=== PATIENT | female | born 1960 | race Caucasian/White ===

== ENCOUNTER 2016-06-15 20:52 | Emergency (ER) | payer OTHER ==
[~2016-06-15] VITALS: Ht 165.1 cm; Wt 75.0 kg
[~2016-06-15 20:52] MED LIST: ANTIDEPRESSANT; LORT5TAB PO; SYNT25TA PO
[2016-06-15 20:59] VITALS: BP 184/97; PULSE 161; RESP 16; TEMP 98.3; O2SAT 95
[2016-06-15] MEDS ORDERED: BUDESONIDE PO (21:04)
[2016-06-15] MEDS ORDERED: SYNT25TA PO (21:04)
[2016-06-15 21:05] VITALS: BP 128/95; PULSE 128; RESP 26; O2SAT 94
--- NOTE | 2016-06-15 21:15 | PD ---
HPI Chief Complaint: Psychiatric Symptoms Time Seen by Provider: 21:14 Travel History International Travel<30 days: No Contact w/Intl Traveler<30days: No Traveled to known affect area: No History of Present Illness HPI 56-year-old female with history of depression, anxiety, and hypothyroidism, presents to the emergency department [facility] under [place] act for psychiatric evaluation. Patient is very tearful, upset. She states that her of 30 years has left her. She has self-inflicted bruises to her face. Patient states she no longer wants to live. She is requesting that we "put her to sleep forever." She repetitively states she is "worthless" and a "piece of shit." Denies alcohol consumption and illicit drug use. Denies any acute medical needs. No other symptoms to report at this time. PFSH Past Medical History Anxiety: Yes Depression: Yes Gastrointestinal Disorders: Yes (microscopic colitis, cilica) Thyroid Disease: Yes Tetanus Vaccination: > 5 Years Influenza Vaccination: No : 4 Para: 4 Tubal Ligation: Yes Past Surgical History Appendectomy: Yes Hysterectomy: Yes Social History Alcohol Use: No Tobacco Use: No Substance Use: No Allergies-Medications (Allergen,Severity, Reaction): Coded Allergies: No Known Allergies (Verified , 06/15/16) Reported Meds & Prescriptions Reported Meds & Active Scripts Active Reported Hydrocodone-Acetaminophen 10-325 mg Tab 1 Tab PO Q6H PRN [budesnoide] 3 Mg PO DAILY Synthroid (Levothyroxine Sodium) 25 Mcg Tab Unknown Dose PO DAILY Review of Systems ROS Limitations: Uncooperative, Combative Except as stated in HPI: all other systems reviewed are Neg Physical Exam Exam Limitations: Uncooperative, Combative Narrative GENERAL: Well-nourished, female patient, tearful, verbally aggressive, with labile moods, in no acute distress SKIN: Focused skin assessment warm/dry. HEAD: Periorbital ecchymosis Normocephalic. EYES: Pupils equal and round. No scleral icterus. No injection or drainage. EOMI. ENT: No nasal bleeding or discharge. Mucous membranes pink and moist. NECK: Trachea midline. No JVD. CARDIOVASCULAR: Tachycardic rate and rhythm. No murmur appreciated. RESPIRATORY: No accessory muscle use. Clear to auscultation. Breath sounds equal bilaterally. GASTROINTESTINAL: Abdomen soft, non-tender, nondistended. Hepatic and splenic margins not palpable. MUSCULOSKELETAL: No obvious deformities. No clubbing. No cyanosis. No edema. NEUROLOGICAL: Awake and alert. No obvious cranial nerve deficits. Motor grossly within normal limits. Normal speech. Data Data Last Documented VS Vital Signs Date Time Temp Pulse Resp B/P Pulse Ox O2 Delivery O2 Flow Rate FiO2 06/15/16 21:05 128 26 128/95 94 Room Air 06/15/16 20:59 98.3 Orders Complete Blood Count With Diff (06/15/16 21:00) Basic Metabolic Panel (Bmp) (06/15/16 21:00) Urinalysis - C+S If Indicated (06/15/16 21:00) Psych Screen (06/15/16 21:00) Drug Screen, Random Urine (06/15/16 21:00) Alcohol (Ethanol) (06/15/16 21:00) Tylenol (Acetaminophen) (06/15/16 21:25) Salicylates (Aspirin) (06/15/16 21:25) Ibuprofen (Motrin) (06/15/16 21:45) Olanzapine Inj (Zyprexa Inj) (06/15/16 21:45) Restraints Violent (06/15/16 21:37) Ct Brain W/O Iv Contrast(Rout) (06/15/16 ) Labs Laboratory Tests Test 06/15/16 06/15/16 21:20 21:30 White Blood Count 9.2 TH/MM3 Red Blood Count 4.59 MIL/MM3 Hemoglobin 14.0 GM/DL Hematocrit 41.4 % Mean Corpuscular Volume 90.1 FL Mean Corpuscular Hemoglobin 30.4 PG Mean Corpuscular Hemoglobin 33.8 % Concent Red Cell Distribution Width 15.2 % Platelet Count 352 TH/MM3 Mean Platelet Volume 8.2 FL Neutrophils (%) (Auto) 58.7 % Lymphocytes (%) (Auto) 34.4 % Monocytes (%) (Auto) 5.6 % Eosinophils (%) (Auto) 0.7 % Basophils (%) (Auto) 0.6 % Neutrophils # (Auto) 5.4 TH/MM3 Lymphocytes # (Auto) 3.2 TH/MM3 Monocytes # (Auto) 0.5 TH/MM3 Eosinophils # (Auto) 0.1 TH/MM3 Basophils # (Auto) 0.1 TH/MM3 CBC Comment DIFF FINAL Differential Comment Urine Color COLORLESS Urine Turbidity CLEAR Urine pH 5.5 Urine Specific [place] 1.005 Urine Protein NEG mg/dL Urine Glucose (UA) NEG mg/dL Urine Ketones NEG mg/dL Urine Occult Blood NEG Urine Nitrite NEG Urine Bilirubin NEG Urine Urobilinogen LESS THAN 2.0 MG/DL Urine Leukocyte Esterase NEG Urine RBC LESS THAN 1 /hpf Urine WBC LESS THAN 1 /hpf Microscopic Urinalysis Comment CULT NOT INDICATED Sodium Level 141 MEQ/L Potassium Level 3.8 MEQ/L Chloride Level 108 MEQ/L Carbon Dioxide Level 21.8 MEQ/L Anion Gap 11 MEQ/L Blood Urea Nitrogen 17 MG/DL Creatinine 0.85 MG/DL Estimat Glomerular Filtration 69 ML/MIN Rate Random Glucose 117 MG/DL Calcium Level 9.8 MG/DL Urine Opiates Screen NEG Urine Barbiturates Screen POS Urine Amphetamines Screen NEG Urine Benzodiazepines Screen NEG Urine Cocaine Screen NEG Urine Cannabinoids Screen POS Ethyl Alcohol Level 106 MG/DL Salicylates Level LESS THAN 1.7 MG/DL Acetaminophen Level 11.9 MCG/ML MDM Medical Decision Making Medical Screen Exam Complete: Yes Emergency Medical Condition: Yes Medical Record Reviewed: Yes Differential Diagnosis Mood disorder versus personality disorder versus adjustment reaction disorder versus acute psychosis versus intoxication versus polysubstance Narrative Course 56 year old female presents to the ED for evaluation under a [place] act. Patient is tearful, combative, uncooperative. She is aggressive towards staff. Patient has self-inflicted bruises to her face from striking herself with her own hands and against objects. Patient is medicated here in the emergency department. CT imaging of the brain is complete and negative for acute intracranial abnormality.. Patient was placed in restraints to protect herself and to protect staff. She was explained removal criteria. [id number] examination was done at 2145. Patient is eminent risk to harming herself and staff. Extremities are neurovascularly intact. CBC and BMP are without acute concern. Urinalysis is unremarkable. Toxicology is positive for barbiturates and cannabinoids. EtOH is 106. Salicylates was less than 1.7. Acetaminophen is 1.9. Patient does report taking Lortab 10 for pain. She takes 3 at a time per her report. Repeats Tylenol will be drawn in 3 hours. Abrasion is medically cleared and undergo psychiatric screening for further evaluation and disposition. Diagnosis Primary Impression: Adjustment disorder with mixed anxiety and depressed mood Additional Impression: Suicidal thoughts Condition: Stable Kaitlynn White Jun 15, 2016 21:14
[2016-06-15] MEDS ORDERED: HYDR-3583 PO (21:18)
[2016-06-15 21:36] LABS: BLOOD, URINE NEG (NEG); GLUCOSE,URINE NEG (NEG); KETONE, URINE NEG (NEG); NITRITE,URINE NEG (NEG); PH, URINE 5.5 (5.0-8.5); URINE COLOR COLORLESS (YELLW/STRAW)
[2016-06-15 21:40] LABS: AMPHETAMINE, URINE NEG (NEG); BARBITURATES, URINE POS (NEG); COCAINE, URINE NEG (NEG)
[2016-06-15 21:45] LABS: COMMENT (UR) CULT NOT INDICATED; CULTURE IF INDICATED CULT NOT INDICATED
[2016-06-15] MEDS ORDERED: IBUPROFEN 800 MG TAB PO ONE (21:45)
[2016-06-15] MEDS ORDERED: OLANZapine IM 10 MG VIAL IM ONE (21:45)
[2016-06-15 21:47] LABS: BICARBONATE 21.8 MEQ/L (21.0-32.0)
[2016-06-15 21:48] LABS: POTASSIUM 3.8 MEQ/L (3.5-5.1)
[2016-06-15 21:52] LABS: AUTOMATED NEUTROPHIL # 5.4 TH/MM3 (1.8-7.7); BASOPHIL # 0.1 TH/MM3 (0-0.2); BASOPHIL % 0.6 % (0.0-2.0); EOSINOPHIL # 0.1 TH/MM3 (0-0.4); EOSINOPHIL % 0.7 % (0.0-4.0); HEMATOCRIT 41.4 % (35.0-46.0); HEMO FLAGS DIFF FINAL; LYMPH % 34.4 % (9.0-44.0); LYMPHOCYTE # 3.2 TH/MM3 (1.0-4.8); MEAN CELL VOLUME 90.1 FL (80.0-100.0); MEAN CORPUSCULAR HEMOGLOBIN 30.4 PG (27.0-34.0); MEAN CORPUSCULAR HGB CONC 33.8 % (32.0-36.0); MONO % 5.6 % (0.0-8.0); NEUT % 58.7 % (16.0-70.0); PLATELET COUNT 352 TH/MM3 (150-450); RED BLOOD COUNT 4.59 MIL/MM3 (4.00-5.30); RED CELL DISTRIBUTION WIDTH 15.2 % (11.6-17.2); WHITE BLOOD COUNT 9.2 TH/MM3 (4.0-11.0)
--- NOTE | 2016-06-15 22:10 | RADRPT ---
EXAM DATE/TIME: 06/15/2016 21:57 [facility] COMPARISON: No previous studies available for comparison. INDICATIONS : Cephalgia; fall. RADIATION DOSE: 56.35 CTDIvol (mGy) MEDICAL HISTORY : None SURGICAL HISTORY : None. ENCOUNTER: Initial ACUITY: 1 day PAIN SCALE: 5/10 LOCATION: cranial TECHNIQUE: Multiple contiguous axial images were obtained of the head. Using automated exposure control and adj ustment of the mA and/or kV according to patient size, radiation dose was kept as low as reasonably a chievable to obtain optimal diagnostic quality images. FINDINGS: CEREBRUM: The ventricles are normal for age. No evidence of midline shift, mass lesion, hemorrhage or acute in farction. No extra-axial fluid collections are seen. POSTERIOR FOSSA: The cerebellum and brainstem are intact. The 4th ventricle is midline. The cerebellopontine angle i s unremarkable. EXTRACRANIAL: The visualized portion of the orbits is intact. SKULL: The calvaria is intact. No evidence of skull fracture. CONCLUSION: No acute disease. Stephan Salmon MD on June 15, 2016 at 22:08 Board Certified Radiologist. This report was verified electronically.
[2016-06-16 01:17] VITALS: BP 109/63; PULSE 79; RESP 16; O2SAT 98
[2016-06-16 05:39] VITALS: BP 101/69; PULSE 77; RESP 14; O2SAT 95
[2016-06-16 09:30] VITALS: BP 146/86; PULSE 70; RESP 14; O2SAT 96
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
[2016-06-17] MEDS ORDERED: BUDE3CAP PO (12:35)
== END 2016-06-16 10:16 | disposition home or self-care (01) ==
LOC: NEPE 20:52
DX: F43.23 Adjustment disorder with mixed anxiety and depressed mood (principal); R45.851 Suicidal ideations; E07.9 Disorder of thyroid, unspecified; Z86.59 Personal history of other mental and behavioral disorders; Z87.19 Personal history of other diseases of the digestive system
CPT/HCPCS: 70450; 80048; 80307; 81001; 85025; 96372